=== PATIENT | male | born 1975 | race Caucasian/White ===

== ENCOUNTER 2020-05-02 13:25 | Outpatient (REF) | payer OTHER, SELFPAY ==
[2020-05-02 21:30] LABS: Abs Immature Grans 0.02 10^3/uL (0.0-0.06); Absolute Basophil Count 0.01 10^3/uL (0.0-0.2); Absolute Eosinophil Count 0.35 10^3/uL (0.0-0.7); Absolute Lymphocyte Count 2.14 10^3/uL (1.2-3.4); Absolute Monocyte Count 0.49 10^3/uL (0.1-0.8); Absolute Neutrophil Count 3.88 10^3/uL (1.2-6.7); Basophils % 0.1; Eosinophils % 5.1; HCT 44.8 % (40.0-50.0); HGB 15.1 g/dL (13.5-17.5); Immature Grans % 0.3; Lymphocytes % 31.1; MCH 30.8 pg (27.0-33.0); MCHC 33.7 % (32.0-36.0); MCV 91.4 fL (80-95); MPV 10.2 fL (8.0-11.0); Monocytes % 7.1; Neutrophils % 56.3; Nucleated RBC 0 %; Platelet Count 315 10^3/uL (130-400); RDW 12.9 % (11.8-14.1); RDW-SD 43.4 fL; WBC 6.89 10^3/uL (4.4-10.8)
[2020-05-02 22:33] LABS: ALT 34 U/L (16-63); AST 20 U/L (15-37); Albumin 4.2 g/dL (3.4-5.0); Alkaline Phosphatase 52 U/L (46-116); Anion Gap 8.3 mmol/L (3-11); BUN 16 mg/dL (7-18); Bilirubin, Total 0.5 mg/dL (0.2-1.0); CO2 28.7 mmol/L (21.0-32.0); CREATININE 1.23 mg/dL (0.70-1.30); Calcium 9.2 mg/dL (8.5-10.1); Calculated LDL 151 mg/dL (<100); Chloride 105 mmol/L (98-107); Cholesterol 233 mg/dL (<200); Glucose 103 mg/dL (74-106); HDL Cholesterol 64 mg/dL (40-60); Potassium 4.3 mmol/L (3.5-5.1); Sodium 142 mmol/L (136-145); TSH (W/Ref FT4) 2.41 uIU/mL (0.36-3.74); Total Protein 7.1 g/dL (6.4-8.2); Triglyceride 93 mg/dL (<150)
== END 2020-05-02 13:45 ==
LOC: NCHCN 13:25
PROVIDERS: Visit Provider Physician Assistant
DX: Z00.00 Encounter for general adult medical examination without abnormal findings (principal); F41.8 Other specified anxiety disorders; Z13.220 Encounter for screening for lipoid disorders; Z13.1 Encounter for screening for diabetes mellitus
CPT/HCPCS: 80053; 80061; 84443; 85025

== ENCOUNTER 2021-11-06 18:49 | Outpatient (REF) | payer OTHER, SELFPAY ==
[2021-11-06 19:16] LABS: Hemoglobin A1C 5.9 % (<5.7)
[2021-11-06 19:17] LABS: ALT 38 U/L (16-63); AST 24 U/L (15-37); Albumin 4.3 g/dL (3.4-5.0); Alkaline Phosphatase 60 U/L (46-116); Anion Gap 9.4 mmol/L (3-11); BUN 18 mg/dL (7-18); Bilirubin, Total 0.3 mg/dL (0.2-1.0); CO2 25.6 mmol/L (21.0-32.0); CREATININE 1.3 mg/dL (0.70-1.30); Calcium 9.2 mg/dL (8.5-10.1); Chloride 105 mmol/L (98-107); Estimated GFR 58.92 (mL/min/1.73m2); Glucose 156 mg/dL (74-106); Potassium 4.7 mmol/L (3.5-5.1); Sodium 140 mmol/L (136-145); Total Protein 7.3 g/dL (6.4-8.2)
== END 2021-11-06 18:50 | disposition home or self-care (01) ==
LOC: NCHCN 18:49
PROVIDERS: Visit Provider Physician Assistant
DX: Z00.00 Encounter for general adult medical examination without abnormal findings (principal); Z83.3 Family history of diabetes mellitus
CPT/HCPCS: 80053; 83036

== ENCOUNTER 2023-02-25 15:11 | Outpatient (REF) | payer OTHER, SELFPAY ==
--- NOTE | 2023-02-25 10:00 | SKI_PTH ---
PATIENT: David Pineda LOC: [facility] U#:[id number] AGE/SX: 47/M ROOM: RE02/25/[address]: Keely Jimenez : 1975 BED: DIS: 02/25/2023 SPEC #: [id number] RECD: 02/25/23 18:32 STATUS: SARA REDalton #: [id number] MINESH: 02/25/23 10:[address]: Keely Jimenez DEPT: Surgical Specimen RECD BY: Kinga Sanders Tissues: 1 - SKIN BIOPSY(SHAVE/PUNCH) Procedures: SKIN LEVEL 4 Comments: [id number]
[2023-02-25 20:29] LABS: ALT 30 U/L (16-63); AST 20 U/L (15-37); Albumin 4.2 g/dL (3.4-5.0); Alkaline Phosphatase 59 U/L (46-116); Anion Gap 8.2 mmol/L (3-11); BUN 16 mg/dL (7-18); Bilirubin, Total 0.3 mg/dL (0.2-1.0); CO2 28.8 mmol/L (21.0-32.0); CREATININE 1.5 mg/dL (0.70-1.30); Calcium 9.2 mg/dL (8.5-10.1); Calculated LDL 164 mg/dL (<100); Chloride 105 mmol/L (98-107); Cholesterol 237 mg/dL (<200); Estimated GFR 56.72 (mL/min/1.73m2); Glucose 115 mg/dL (74-106); HDL Cholesterol 56 mg/dL (40-60); Potassium 4.7 mmol/L (3.5-5.1); Sodium 142 mmol/L (136-145); Total Protein 7.6 g/dL (6.4-8.2); Triglyceride 86 mg/dL (<150)
== END 2023-02-25 15:12 | disposition home or self-care (01) ==
LOC: NCHCN 15:11
PROVIDERS: PCP Physician Assistant; Visit Provider Physician Assistant
DX: Z00.00 Encounter for general adult medical examination without abnormal findings (principal); E78.5 Hyperlipidemia, unspecified; L81.4 Other melanin hyperpigmentation; D23.61 Other benign neoplasm of skin of right upper limb, including shoulder
CPT/HCPCS: 80053; 80061; 88305

== ENCOUNTER 2023-05-17 12:11 | Emergency (ER) | payer OTHER, SELFPAY ==
[2023-05-17 12:29] VITALS: BP 159/86; PULSE 77; RESP 15; TEMP 36.7; O2SAT 96
--- NOTE | 2023-05-17 13:00 | DI.RAD_ITS ---
Exam(s) XR ANKLE RT COMPLETE EXAM: XR ANKLE RT COMPLETE CLINICAL HISTORY: Pain, swelling. TECHNIQUE: 2D digital imaging was performed. Three views. COMPARISON: No exams were available for comparison FINDINGS: BONES: No acute fracture is present. No bony destructive lesion is seen. Enthesophyte at Achilles in sertion calcaneus. Chronic appearing density adjacent to tip medial malleolus. JOINTS: The ankle mortise is normally aligned. SOFT TISSUE: Swelling IMPRESSION: No acute abnormality. DATA REPOSITORY: RADIATION DOSE DELIVERED:
--- NOTE | 2023-05-17 13:13 | W.ED.GENAD ---
Discharge Plan Disposition Patient Disposition: Home Condition: Stable Discharge Details Clinical Impression: Ankle pain, right Primary Care Provider: Keely Jimenez ED Provider: Sugey Barron Home Meds and New Rx's Prescriptions: New indomethacin 50 mg capsule 50 mg PO BID PRN (Reason: pain (scale score 4-6)) Qty: 14 0RF Rx Instructions: administer with food or milk No Action liothyronine 5 mcg Tablet 4.5 mcg PO DAILY bupropion HCl [Wellbutrin XL] 300 mg Tablet Extended Release 24 Hr 450 mg PO DAILY Discharge Instructions Instructions: Gout (ED) Additional Instructions: No evidence of acute abnormality to right ankle. Take the indomethacin as directed. Rest, Ice, Compression, elevation. Use crutches and wear splint as needed for comfort. Follow up with primary care provider in 3-5 days. Return to ED sooner if any worsening or concerns. Increase oral fluids. Stand Alone Forms: Work Release Referrals: Keely Jimenez [Primary Care Provider] - 3 days Discharge Data Discharge Date/Time-TO BE ENTERED AT DEPARTURE: 05/17/23 14:15 Medical Decision Making 47-year-old male presents to the ER with chief complaint of right ankle pain and swelling which started this morning. He reports he does have a history of gout which is normally in his toe he reports that this feels similar. He does have some swelling to the lateral malleolus. Denies any known injury. He did take naproxen prior to arrival and has been icing it and elevating it with some relief. He does endorse a high purine diet with red meat and wine. No other associated symptoms or concerns. X-ray ordered., Indomethacin 50 mg p.o. Patient given crutches, and a lace up ankle splint. Prescription for Indomethacin given. Instructed to follow up. This text was generated using [employer]comation system, please disregard any oddities of phrase or misspellings. Imaging Data Radiologic Study: Imaging: X-Ray Radiologist's impression: EXAM:? XR ANKLE RT COMPLETE CLINICAL HISTORY: ? Pain, swelling. ? TECHNIQUE:? 2D digital imaging was performed.? Three views. COMPARISON:? No exams were available for comparison FINDINGS: BONES: No acute fracture is present.? No bony destructive lesion is seen. Enthesophyte at Achilles insertion calcaneus.? Chronic appearing density adjacent to tip medial malleolus. JOINTS: The ankle mortise is normally aligned. SOFT TISSUE: Swelling IMPRESSION: No acute abnormality.? HPI General Mode of arrival: ambulatory. Date/Time Provider Initiated Documentation: 05/17/23 13:08. Limitations to Documentation: no limitations. Information obtained by: patient, RN notes reviewed and old records reviewed. HPI Narrative: 47-year-old male presents to the ER with chief complaint of right ankle pain and swelling which started this morning. He reports he does have a history of gout which is normally in his toe he reports that this feels similar. He does have some swelling to the lateral malleolus. Denies any known injury. He did take naproxen prior to arrival and has been icing it and elevating it with some relief. He does endorse a high purine diet with red meat and wine. No other associated symptoms or concerns. Related Data Home Medications Medication Instructions Recorded Confirmed bupropion HCl 300 mg 24 hr tablet, 450 mg PO DAILY 05/17/23 05/17/23 extended release (Wellbutrin XL) indomethacin 50 mg capsule 50 mg PO BID PRN pain (scale score 05/17/23 4-6) #14 caps liothyronine 5 mcg tablet 4.5 mcg PO DAILY 05/17/23 05/17/23 Previous Rx's Medication Instructions Recorded indomethacin 50 mg capsule 50 mg PO BID PRN pain (scale score 05/17/23 4-6) #14 caps Allergies Allergy/AdvReac Type Severity Reaction Status Date / Time No Known Allergies Allergy Unverified 05/17/23 12:33 General Stated Complaint: GenMedical RAMYA: 4 Review of Systems All systems reviewed & are unremarkable except as noted in HPI and below PFSH All Active Problems (Updated 05/17/23 @ 13:56 by Sugey Barron NP) Ankle pain, right (Acute) Social History Smoking/Tobacco Use Status: Never Smoking risk assessment performed?: Yes Alcohol Intake: current Alcohol Intake frequency: a few times a week Alcohol type: beer Drug use: Never Substance use type: does not use Housing: house Do you feel safe at home: Yes Do you feel safe in your relationship?: Yes Exam Extrem Right lower extremity: normal capillary refill and ankle Details: tenderness Location: of the lateral malleolus and swelling Details: laterally Course Vital Signs Vital signs: Vital Signs Temperature 36.7 C 05/17/23 12:29 Pulse 77 05/17/23 12:29 Respiratory Rate 15 05/17/23 12:29 Blood Pressure 159/86 H 05/17/23 12:29 Pulse Oximetry 96 05/17/23 12:29 Temperature 36.7 C 05/17/23 12:29 Temperature Source Temporal Artery Scan 05/17/23 12:29 Pulse 77 05/17/23 12:29 Respiratory Rate 15 05/17/23 12:29 Respiratory Effort Normal 05/17/23 12:58 Respiratory Depth Normal 05/17/23 12:58 Respiratory Pattern Normal 05/17/23 12:58 Blood Pressure 159/86 H 05/17/23 12:29 Blood Pressure Position Sitting 05/17/23 12:29 Pulse Oximetry 96 05/17/23 12:29 Oxygen Delivery Method Room Air 05/17/23 12:29 Oxygen Flow Rate 0 05/17/23 12:29 PAWSS Have you Been Recently Intoxicated or Drunk Within the Last 30 days?: No Have you Ever Experienced Previous Episodes of Alcohol Withdrawal?: No Have you ever Experienced Withdrawal Seizures?: No Have you ever Experienced Delirium Tremens(DT)s?: No Have you ever undergone Alcohol Rehabilitation Treatment (i.e, inpt ot outpatient treatment programs)?: No Have you ever Experienced Blackouts?: No Have you ever Combined Alcohol with other Downers within the last 90 days?: No Have you ever Combined Alcohol with any other Substance of Abuse during the last 90 days?: No Result: 0
[2023-05-17] MEDS: Indomethacin 25 MG CAP 50 MG PO (13:25)
== END 2023-05-17 14:15 | disposition home or self-care (01) ==
PROVIDERS: Emergency Provider Registered Nurse Emergency; PCP Physician Assistant
DX: M25.571 Pain in right ankle and joints of right foot (principal); M1A.9XX0 Chronic gout, unspecified, without tophus (tophi)
CPT/HCPCS: 99283; 73610; 99282

== ENCOUNTER 2024-03-07 10:51 | Outpatient (REF) | payer OTHER, SELFPAY ==
[2024-03-07 20:25] LABS: ALT 34 U/L (16-63); AST 26 U/L (15-37); Albumin 4.2 g/dL (3.4-5.0); Alkaline Phosphatase 61 U/L (46-116); Anion Gap 8.8 mmol/L (3-11); BUN 12 mg/dL (7-18); Bilirubin, Total 0.42 mg/dL (0.2-1.0); CO2 27.2 mmol/L (21.0-32.0); CREATININE 1.3 mg/dL (0.70-1.30); Calcium 8.9 mg/dL (8.5-10.1); Chloride 105 mmol/L (98-107); Estimated GFR 66.93 (mL/min/1.73m2); Glucose 103 mg/dL (74-106); Potassium 4.5 mmol/L (3.5-5.1); Sodium 141 mmol/L (136-145); Total Protein 7.5 g/dL (6.4-8.2); Uric Acid 8.5 mg/dL (3.5-7.2)
[2024-03-08 20:34] LABS: PSA, Screening 0.8 ng/mL (<=3.5)
[2024-03-08 21:12] LABS: Hepatitis C Ab w Rflx HCV PCR Negative (Negative)
[2024-03-08 21:16] LABS: HIV-1/2 Ag & Ab Screen Negative (Negative)
== END 2024-03-07 10:52 | disposition home or self-care (01) ==
LOC: NCHCN 10:51
PROVIDERS: PCP Physician Assistant; Visit Provider Physician Assistant
DX: M10.9 Gout, unspecified (principal); Z11.4 Encounter for screening for human immunodeficiency virus [HIV]; Z11.59 Encounter for screening for other viral diseases; Z12.5 Encounter for screening for malignant neoplasm of prostate
CPT/HCPCS: 80053; 84153; 86803; 87389; 84550

== ENCOUNTER 2024-04-30 19:58 | Outpatient (REF) | payer OTHER, SELFPAY ==
--- OUTSIDE RECORDS SUMMARY | 2024-04-30 19:59 | XMS_ITS | Continuity of Care Document ---
Author Organization [place] - [facility] Address [address] [place] [address] Care Team Providers Care Office Employee Name Role Phone MAIN CHAIDEZ Primary Care Provider [phone] MERRITT LEVY Dentist Assessment No assessment recorded. Plan of Treatment Reminders Order Date Submit Date Provider Last Modified By Organization Details Last Modified Time Details Appointments Nurse Visit 20 2023 02:00P M Not available Not available Not available Immunizat ion 20 2023 08:00A M Not available Not available Not available Annual Wellness Exam 40 2024 08:00A M Not available Not available Not available Lab BMP, serum or plasma 2023 024 [email or web address] [facility] (Registration ), [address] [place] [address] [place], [address], 04/30/2024 15:28:17 uric acid, serum or plasma 2023 024 [email or web address] [facility] (Registration ), [address] [place] [address] [place], [address], 04/30/2024 15:28:17 Referral None recorded. Procedures None recorded. Surgeries None recorded. Imaging None recorded. Medication Orders None recorded. Patient TargetsNo targets recorded. Patient InstructionsNo instructions recorded. Reason for Referral None Reported. Results Created Date Observation Date Name Description Value Unit Range Abnormal Flag Note LastModifiedBy Organization Detail LastModifiedTime 04/30/20 24 05/17/2023 imagi ng/di agnos tic resul t No observ ation record ed. [email or web address] Not Available 04/30 04:27:08 Result Notes None recorded. Problems Name Problem SNOMED Code Status Onset Date Resolution Date Notes Provider Name and Address Organization Details Recorded Time Elevated blood-pr essure reading without diagnosi s of hyperten ada 278190993 Active 201606/19/20 18 - Comments only - LIBAN LisaC - Blood pressure well controll ed. No changes. [facility] ed lifestyl e modifica tions. Problem Code: R03.0; Problem Code Type: ICD-10; Not Available [facility] 3 04:02:15 Sleep apnea 84181108 Active 201611/07/19 22 - Comments only - Main GOLDMAN - - discusse d risks of untreate d sleep apnea. [facility] ed pt to reconsid er treatmen t and advised to let us know if he would like a referral back to the sleep clinic. he declines this for now. Problem Code: G47.30; Problem Code Type: ICD-10; Not Available [facility] 3 04:02:15 Gout 27905409 Active 2016 Problem Code: M10.9; Problem Code Type: ICD-10; Not Available [facility] 3 04:02:15 Anxiety 04117543 Active 201602/26/20 23 - Comments only - Main GOLDMAN - mood stable. cont current medicati ons. denies SI or HI Problem Code: F41.8; Problem Code Type: ICD-10; Not Available [facility] 3 04:02:15 Adult health examinat ion Active 201602/26/20 23 - Comments only - Main GOLDMAN - - referral to [facility] for colonosc opy - UTD on imms- bivalent booster due in the fall - fasting BW drawn today - Discusse d lifestyl e modifica tions such as diet and exercise (aerobic exercise 30 minutes 4-5 days per week) Problem Code: Z00.00; Problem Code Type: ICD-10; Not Available [facility] 3 04:02:15 Hyperlip idemia 65150433 Active 201910/18/19 21 - Comments only - Main GOLDMAN - - pt declines blood work this time - discusse d lifestyl e modifica tions Problem Code: E78.5; Problem Code Type: ICD-10; Not Available [facility] 3 04:02:15 Family history of diabetes mellitus 787882826 Active 202111/07/19 22 - Comments only - Main GOLDMAN - - checking a1c Problem Code: Z83.3; Problem Code Type: ICD-10; Not Available [facility] 3 04:02:15 Migraine 16949591 Active 202111/07/19 22 - Comments only - Main GOLDMAN - - rx for imitrex 50mg 1 tablet at onset can repeat in 2 hours if needed - discusse d migraine preventi on lifestyl e choices (ie sleep, water, food and exercise ) Problem Code: G43.909; Problem Code Type: ICD-10; Not Available [facility] 3 04:02:15 COVID-19 593706183 Active 2021 Problem Code: U07.1; Problem Code Type: ICD-10; Not Available [facility] 3 04:02:15 Neoplasm of uncertai n behavior of skin 94286511 Active 202202/26/20 23 - Comments only - Main GOLDMAN - PROCEDUR E: Shave Biopsy Location : R posterio r shoulder The risks, benefits , options and complica tions of shave biopsy have been discusse d with pt. The risks include the chance of infectio n and scarring . Pt gives verbal consent. Denies allergie s to lidocain eand iodine. The site was prepped with Iodine and the skin locally anesthet ized with 0.25 cc of 1% Lidocain e. Superfic ial layers removed by shave biopsy with dermabla de Hemostas is obtained with pressure and silver nitrate. No complica tions were encounte red. The wound was dressed with antibiot ic ointment and a band-aid . Wound care discusse d. Specimen sent for patholog y. Keep wound dry and covered for 24-48 hr Problem Code: D48.5; Problem Code Type: ICD-10; Not Available [facility] 3 04:02:16 Screenin g for malignan t neoplasm of colon Completed 202202/26/2023 Problem Code: Z12.11; Problem Code Type: ICD-10; Not Available [facility] 3 04:02:16 Allergic rhinitis 73266020 Completed 201606/19/2018 Problem Code: J30.9; Problem Code Type: ICD-10; Not Available [facility] 3 04:02:16 Diabetes mellitus screenin g Completed 201910/17/2020 Problem Code: Z13.1; Problem Code Type: ICD-10; Not Available [facility] 3 04:02:16 Anxiety disorder 168635962 Completed 201611/24/2016 Problem Code: F41.9; Problem Code Type: ICD-10; Not Available [facility] 3 04:02:17 Hyperlip idemia screenin g Completed 201910/17/2020 Problem Code: Z13.220; Problem Code Type: ICD-10; Not Available [facility] 3 04:02:20 Major depressi on, single episode 90384834 Completed 201611/24/2016 Problem Code: F32.9; Problem Code Type: ICD-10; Not Available [facility] 3 04:02:22 Prediabe jax 189046728 Active 2023 MAIN CHAIDEZ PA-C [address], [place], [address] , [facility] 4 08:34:56 Skin lesion 81546963 Active 2023 L lower back 1cmx0.2c m oval brown macule MAIN CHAIDEZ PA-C [address], [place], [address] , [facility] 4 09:01:18 Problem Notes None recorded. Medical Equipment None Reported. Allergies No known drug allergies Medications Name Sig Start Date Stop Date Status Note LastModified by Organization Details LastModified Time Prescript ion - Renewal active Sumatrip perez refill Not Available Not Available Not Available bupropion HCl SR 150 mg tablet,12 hr sustained -release Take 1 tab by mouth daily 11/24 completed Not Available Not Available Not Available cetirizin e 10 mg tablet Take 1 tab by mouth daily. 11/24 completed Not Available Not Available Not Available allopurin ol 100 mg tablet Take 1 tablet every day by oral route. active Not Available Not Available No t Available liothyron ine 5 mcg tablet TAKE ONE AND ONE-HALF TABLETS ONCE DAILY 2023 active Not Available Not Available Not Avai lable Imitrex 50 mg tablet Take 1 tablet by mouth as directed AT ONSET OF MIGRAINE . MAY REPEAT IN 2 HOURS ONCE 2021 active Not Available Not Available Not Avai lable bupropion HCl 100 mg tablet Take 1and a half tabs by mouth daily 2016 active Not Available Not Available Not Avai lable indometha dany 50 mg capsule TAKE ONE CAPSULE BY MOUTH TWICE A DAY NEEDED FOR PAIN ( SCALE SCORE 4-6) ADMINIST ER WITH FOOD OR MILK active Not Available Not Available No t Available fluticaso ne propionat e 50 mcg/actua tion nasal spray,delio pension 1 spray each nostril daily 11/24 completed Not Available Not Available Not Available bupropion HCl XL 300 mg 24 hr tablet, extended release TAKE 1 TABLET DAILY 2023 active Not Available Not Available Not Avai lable bupropion HCl XL 150 mg 24 hr tablet, extended release TAKE 1 TABLET DAILY. active Not Available Not Available No t Available multivita min 1 tab a day 2016 active Not Available Not Available Not Avai lable Tart Yen 30 mg-250 mg-75 mg-75 mg capsule 10/17 completed Not Available Not Available Not Available Paxlovid 300 mg (150 mg x 2)-100 mg tablets in a dose pack Take 3 tablet by mouth twice a day as directed Take 3 tablets twice a day for 5 days. 02/25 completed Not Available Not Available Not Available Vitals None Recorded Social History Question Answer Notes LastModified by Organizat ion Details LastModified Time Tobacco Smoking Status Never Smoker ALEXY ALAMO LPN null, [place] - [facility] 03/07/2024 08:22:18 Would You Say That, In General, Your Health Is Good Information not available 03/07/2024 How Often Does Anyone, Including Family, Physically Hurt You? Never Information not available 03/07/2024 How Often Does Anyone, Including Family, Insult Or Talk Down To You? Never Information no t available 03/07/2024 How Often Does Anyone, Including Family, Threaten You With Harm? Never Information not available 03/07/2024 How Often Does Anyone, Including Family, Scream Or Curse At You? Never Information not available 03/07/2024 Within The Past 12 Months, You Worried That Your Food Would Run Out Before You Got Money To Buy More. Never True Information n ot available 03/07/2024 Within The Past 12 Months, The Food You Bought Just Didn't Last And You Didn't Have Money To Get More. Never True Information not available 03/07/2024 How Hard Is It For You To Pay For The Very Basics Like Food, Housing, Medical Care, And Heating? Would You Say It Is: Not Hard At All Information not available 03/07/2024 In The Past 12 Months, Has Lack Of Reliable Transportation Kept You From Medical Appointments, Meetings, Work Or From Getting Things Needed For Daily Living? No Information not available 03/07/2024 What Is Your Housing Situation Today? I Have Housing. Information not available 03/07/2024 How Often In The Past Year Have You Used Marijuana (including Smoking, Vaping, Dabbing, Or Edibles)? Never Information not available 03/07/2024 How Often In The Past Year Have You Used Prescription Medications That Were Not Prescribed To You? Never Information not available 03/07/2024 How Often In The Past Year Have You Taken Your Own Prescription Medication More Than The Way It Was Prescribed Or For Different Reasons Than Its Intended Purpose? Never Information not available 03/07/2024 How Often In The Past Year Have You Used Other Drugs (for Example, Heroin, Cocaine, Meth, Salvia, Inhalants)? Never Information not available 03/07/2024 Have You Ever Used IV Drugs? No Information not available 03/07/2024 Date Of Most Recent SBINS 03/07/2024 Information not available 03/07/2024 What Was The Date Of Your Most Recent Tobacco Screening? 03/07/2024 Information n ot available 03/07/2024 Has Tobacco Cessation Counseling Been Provided? No Information not available 03/07/2024 Do You Or Have You Ever Used Any Other Forms Of Tobacco Or Nicotine? No Information not available 03/07/2024 Sex: Male Functional Status None recorded. Mental Status None recorded. Family History Relationship Description Onset Age of this Age Resolved Age Notes LastModified by Organization Details LastModified Time Father Family history of alcoholism [email or web address] Not available 06/24 03:54:47 Daughter Family history of malignant melanoma dxd age 17, BCC and dyspla stic nevus [email or web address] Not available 03/07/2024 08:42:19 Mother Crohn's disease [email or web address] Not available 2023 08:41:23 Mother Ulcerative colitis [email or web address] Not available 2023 08:41:42 Father Type 2 diabetes mellitus [email or web address] Not available 2023 08:41:59 Notes:Father , age 5 7, diabetes, substance abuse issues. Mother living, age 70, has ulcerative colitis. no fhx of prostate cancer Medical History No medical history recorded. Immunizations Vaccine Type Date Status Provider Name and Address Organization Details Recorded Time zoster recombinant 03/07/[address], [place], [address], [facility]. 03/07/2024 09:35:16 Tdap 11/24/2016 completed Not Available [facility] 06:32:36 Influenza, split virus, quadrivalent, preservative 05/26/2017 completed Not Available [facility] 06/24/2023 06:32:37 Influenza, split virus, quadrivalent, preservative 06/16/2018 completed Not Available [facility] 06/24/2023 06:32:37 COVID-19, mRNA, LNP-S, PF, 100 mcg/0.5mL dose or 50 mcg/0.25mL dose 10/10/2020 completed Not Available [facility] 06/24/20 06:32:37 COVID-19, mRNA, LNP-S, PF, 100 mcg/0.5mL dose or 50 mcg/0.25mL dose 11/06/2020 completed Not Available [facility] 06/24/20 06:32:37 COVID-19, mRNA, LNP-S, PF, 100 mcg/0.5mL dose or 50 mcg/0.25mL dose 07/17/2021 completed Not Available [facility] 06/24/20 06:32:37 COVID-19, mRNA, LNP-S, bivalent, PF, 50 mcg/0.5 mL or 25mcg/0.25 mL dose 06/01/2022 completed Not Available [facility] 06/24/2023 06:32:37 influenza, unspecified formulation 05/29/2018 completed Not Available [facility] 06/24/2023 06:32:37 influenza, unspecified formulation 05/29/2020 completed Not Available [facility] 06/24/2023 06:32:37 Past Encounters Encounter ID Performer Location Encounter Start Date Encounter Closed Date Diagnosis/Indication Diagnosis SNOMED-CT Code Diagnosis ICD10 Code [id number] [address] [address] 04/30/2024 13:54:56 04/30/2024 14:22:29 [facility] [id number] M10.9 Health Concerns Section Related Observation LastModified by Organization Detai ls LastModified Time None Recorded Concern Status LastModified by Organization Details LastModified Time None Recorded Payers Encounter Date Sequence Insurance Name Policy Number Policy Daniels Covered Member ID Daniels Member ID Guarantor Name 04/30/2024 1 [facility] [id number] David Pineda [id number] David Pineda
--- OUTSIDE RECORDS SUMMARY | 2024-04-30 19:59 | XMS_ITS | Continuity of Care Document ---
Author Organization [place] [facility] Address [address] [place] [address] Care Team Providers Care Certified Residential Medication Aide Name Role Phone KEELY CHAIDEZ Primary Care Provider MERRITT LEVY Dentist Assessment No assessment recorded. [...] Not available Not available Not available Lab CMP, serum or plasma 2023 024 CHRISTEN [facility] (Registration ), [address] [place] [address] [place], [address], 03/07/2024 20:27:37 uric acid, serum or plasma 2023 024 [email or web address] [facility] (Registration ), [address] [place] [address] [place], [address], 03/08/2024 08:19:01 hemoglobi n A1C, fingersti ck 2023 024 [email or web address] [facility], [address] [place] [address], [address], 03/07/2024 08:38:27 PSA, serum or plasma 2023 024 [email or web address] [facility] (Registration ), [address] [place] [address] Dr, [place], [address], 03/09/2024 10:08:55 hepatitis C virus Ab, serum 2023 024 [email or web address] (Registration ), [address] [place] [address] [place], [address], 03/09/2024 10:08:34 HIV (1+2) Ab screen, serum 2023 024 [email or web address] (Registration ), [address] [place] [address] [place], [address], 03/09/2024 10:08:45 Referral None recorded. Procedures colonosco py procedure (PROC) 2023 [facility], [address] [place] [address] [place], [address], 03/07/2024 09:44:48 Surgeries None recorded. Imaging None recorded. Medication Orders liothyron ine [address] [facility], [address] [place] [address], [address], 03/07/2024 09:34:17 bupropion HCl XL 150 mg 24 hr tablet, extended release [address] [facility], [address] [place] [address], [address], 03/07/2024 09:34:15 bupropion HCl XL 300 mg 24 hr tablet, extended release [address] [facility], [address] [place] [address], [address], 03/07/2024 09:34:15 Patient TargetsNo targets recorded. Patient Instructions Encounter Date Encounter Id Patient Instructions Last Modified By Organization Details Last Modified Time 03/07/2024 [id number] diet [email or web address] Not available 03/07 09:35:32 exercise [email or web address] Not available 2023 09:35:32 You had blood work done today. Please allow up to 2 weeks to hear about results. Decrease carbohydrate intake (breads, pasta, rice, potatoes, corn, peas, carrots, milk, sweets and sugary drinks) as well as increase aerobic exercise (ie walking 4-5 times per week for 20-30 minutes) schedule nurse visit in 3 months for second shingles vaccine A referral has been placed for {{Allergy Audiolo gy Bariatric Card iology Colonoscop y* Powertrain Design Engineer Endo crinology ENT Gas troenterology Gen eral Surgery Genetics Hematology/Oncolo gy Nephrology Destiny rology HOSPITAL EDUCATION COORDINATOR Opt ometry/Ophthalmol ogy Orthopedics [facility] Physical Therapy Podiatry Psychiatry Pulmon ology Rheumatolog y Sleep Clinic Spine Clinic Urology Va scular Surgery}} at {{[facility] ([facility]) [facility] ([facility] ([facility]) [facility] ([facility]) [facility] ([facility]) [facility]}}. If you do not receive a call to schedule an appointment in 7-10 days, please contact our host coordinator at watch that skin lesion on left lower back let me know if increasing in size or becoming discolored (darker brown, black, blue etc) or bleeding/scabbing Call with any questions or concerns [email or web address] Not available 03/07/2024 08:51:45 Reason for Referral None Reported. Results Created Date Observation Date Name Description Value Unit Range Abnormal Flag Note LastModifiedBy Organization Detail LastModifiedTime 03/07/2003/07/2024 hemog lobin A1C, finge rstic k hemoglobin A1C 5.9 % <5.7 Not Available [facility] [address] [facility] [address], [place], [address], 03/06/2024 11:10:22 04/30/20 24 05/17/2023 imagi ng/di agnos tic resul t No observ ation record ed. [email or web address] Not Available 04/30 04:27:08 Result Notes None recorded. Problems Name Problem SNOMED Code Status Onset Date Resolution Date Notes Provider Name and Address Organization Details Recorded Time Elevated blood-pr essure reading without diagnosi s of hyperten ada 640920504 Active 201606/19/20 18 - Comments only - LIBAN LisaC - Blood pressure well controll ed. No changes. [facility] ed lifestyl e modifica tions. Problem Code: R03.0; Problem Code Type: ICD-10; Not Available [facility] 3 04:02:15 Sleep apnea 24558039 Active 201611/07/19 22 - Comments only - Keely GOLDMAN - - discusse d risks of untreate d sleep apnea. [facility] ed pt to reconsid er treatmen t and advised to let us know if he would like a referral back to the sleep clinic. he declines this for now. Problem Code: G47.30; Problem Code Type: ICD-10; Not Available [facility] 3 04:02:15 Gout 47554992 Active 2016 Problem Code: M10.9; Problem Code Type: ICD-10; Not Available [facility] 3 04:02:15 Anxiety 07496496 Active 201602/26/20 23 - Comments only - Keely GOLDMAN - mood stable. cont current medicati ons. denies SI or HI Problem Code: F41.8; Problem Code Type: ICD-10; Not Available [facility] 3 04:02:15 Adult health examinat ion Active 201602/26/20 23 - Comments only - Keely GOLDMAN - - referral to [facility] general surgery for colonosc opy - UTD on imms- bivalent booster due in the fall - fasting BW drawn today - Discusse d lifestyl e modifica tions such as diet and exercise (aerobic exercise 30 minutes 4-5 days per week) Problem Code: Z00.00; Problem Code Type: ICD-10; Not Available [facility] 3 04:02:15 Hyperlip idemia 60249764 Active 201910/18/19 21 - Comments only - Keely GOLDMAN - - pt declines blood work this time - discusse d lifestyl e modifica tions Problem Code: E78.5; Problem Code Type: ICD-10; Not Available [facility] 3 04:02:15 Family history of diabetes mellitus 589495636 Active 202111/07/19 22 - Comments only - Keely GOLDMAN - - checking a1c Problem Code: Z83.3; Problem Code Type: ICD-10; Not Available [facility] 3 04:02:15 Migraine 07807671 Active 202111/07/19 22 - Comments only - Keely GOLDMAN - - rx for imitrex 50mg 1 tablet at onset can repeat in 2 hours if needed - discusse d migraine preventi on lifestyl e choices (ie sleep, water, food and exercise ) Problem Code: G43.909; Problem Code Type: ICD-10; Not Available [facility] 3 04:02:15 COVID-19 346813801 Active 2021 Problem Code: U07.1; Problem Code Type: ICD-10; Not Available [facility] 3 04:02:15 Neoplasm of uncertai n behavior of skin 12906101 Active 202202/26/20 23 - Comments only - Keely GOLDMAN - PROCEDUR E: Shave Biopsy Location [...] D48.5; Problem Code Type: ICD-10; Not Available [facility] 3 04:02:16 Screenin g for malignan t neoplasm of colon Completed 202202/26/2023 Problem Code: Z12.11; Problem Code Type: ICD-10; Not Available [facility] 3 04:02:16 Allergic rhinitis 38974076 Completed 201606/19/2018 Problem Code: J30.9; Problem Code Type: ICD-10; Not Available [facility] 3 04:02:16 Diabetes mellitus screenin g Completed 201910/17/2020 Problem Code: Z13.1; Problem Code Type: ICD-10; Not Available [facility] 3 04:02:16 Anxiety disorder 426217270 Completed 201611/24/2016 Problem Code: F41.9; Problem Code Type: ICD-10; Not Available [facility] 3 04:02:17 Hyperlip idemia screenin g Completed 201910/17/2020 Problem Code: Z13.220; Problem Code Type: ICD-10; Not Available [facility] 3 04:02:20 Major depressi on, single episode 52299026 Completed 201611/24/2016 Problem Code: F32.9; Problem Code Type: ICD-10; Not Available [facility] 3 04:02:22 Prediabe jax 023430378 Active 2023 KEELY CHAIDEZ PA-C [address], [place], [address] , [facility] 4 08:34:56 Skin lesion 56035004 Active 2023 L lower back 1cmx0.2c m oval brown macule KEELY CHAIDEZ PA-C [address], [place], [address] , [facility] 4 09:01:18 Problem Notes None recorded. Medical [...] Not Available Not Available Not Available Vitals Date Recorded Body height Body mass index (BMI) Body weight Body temperature Respiratory rate Oxygen saturation Oxygen saturation in Arterial blood by Pulse oximetry Heart rate Systolic blood pressure Diastolic blood pressure Provider Name and Address Organization Details Last Updated DateTime 175.26 cm 38.2 kg/m2 905528. 93 g 97.4 [degF] 18 /min 96 % 96 % 66 /min 122 mm[Hg] 80 mm[Hg] ALEXY ALVAREZULTON SURJIT [facility] 08:20:57 Social History Question Answer Notes LastModified by Organizat ion Details LastModified Time Tobacco Smoking Status Never Smoker ALEXY SURJIT ALAMO null, [facility] 03/07/2024 08:22:18 Would You Say That, In [...] Age of this Age Resolved Age Notes Father Family history of alcoholism Daughter Family history of malignant melanoma dxd age 17, B CC and dysplastic nevus Mother Crohn's disease Mother Ulcerative colitis Father Type 2 diabetes mellitus Notes:Father , age 5 7, diabetes, substance abuse issues. Mother living, age 70, has ulcerative colitis. no fhx of prostate cancer Medical History No medical history recorded. Immunizations Vaccine Type Date Status Provider Name and Address Organization Details Recorded Time zoster recombinant 03/07/[address] [place], [address], [facility] 03/07/2024 09:35:16 Tdap 11/24/2016 completed Not Available [facility] 06:32:36 Influenza, split virus, quadrivalent, preservative 05/26/2017 completed Not Available [facility] 06/24/2023 06:32:37 Influenza, split virus, quadrivalent, preservative 06/16/2018 completed Not Available [facility] 06/24/2023 06:32:37 COVID-19, mRNA, LNP-S, PF, 100 mcg/0.5mL dose or 50 mcg/0.25mL dose 10/10/2020 completed Not Available [facility] 06/24/20 06:32:37 COVID-19, mRNA, LNP-S, PF, 100 mcg/0.5mL dose or 50 mcg/0.25mL dose 11/06/2020 completed Not Available [facility] 06/24/20 06:32:37 COVID-19, mRNA, LNP-S, PF, 100 mcg/0.5mL dose or 50 mcg/0.25mL dose 07/17/2021 completed Not Available [facility] 06/24/20 06:32:37 COVID-19, mRNA, LNP-S, bivalent, PF, 50 mcg/0.5 mL or 25mcg/0.25 mL dose 06/01/2022 completed Not Available [facility] 06/24/2023 06:32:37 influenza, unspecified formulation 05/29/2018 completed Not Available [facility] 06/24/2023 06:32:37 influenza, unspecified formulation 05/29/2020 completed Not Available [facility] 06/24/2023 06:32:37 Past Encounters Encounter ID Performer Location Encounter Start Date Encounter Closed Date Diagnosis/Indication Diagnosis SNOMED-CT Code Diagnosis ICD10 Code [id number] KEELY CHAIDEZ PA-C [address] [address] 03/07/2024 08:07:23 03/07/2024 09:09:35 Active or passive immunization 930714959 Z23 Adult heal th examination 169123648 Z00.00 Hepatitis C screening 41 9422461 Z11.59 HIV screening 003407494 Z11.4 Prediabetes 301326292 R7 3.03 Gout 20141755 M10.9 Screening for malignant neoplasm of prostate 999403850 Z12.5 Hyperlipidemia 33784429 E78.5 Skin lesion 18487026 L98 .9 Screening for malignant neoplasm of colon 355230604 Z12.11 Anxiety 84042901 F41.9 Obesity 026149802 E66.9 Health Concerns Section Related Observation LastModified by Organization Detai ls LastModified Time None Recorded Concern Status LastModified by Organization Details LastModified Time None Recorded Payers Encounter Date Sequence Insurance Name Policy Number Policy Daniels Covered Member ID Daniels Member ID Guarantor Name 03/07/2024 1 [facility] [id number] David Pineda [id number] Dvaid Pineda Notes Date Note Type Note Provider Name and Address Organization Details Recorded Time 03/07/2024 text/html HPI Notes: Ingrid weston presents for annual exam and discussion of preventive care, as well as concerns about moles on his back. Annual exam: Patient is a 48-year-old male here for his annual exam. Colonoscopy referral: Patient mentioned that a referral was made last year for a colonoscopy, but due to scheduling issues, the procedure was not done. Prediabetes: Patient's most recent A1c was 5.9, indicating prediabetes. He is advised to watch his carbohydrate intake and decrease consumption of bread, pasta, rice, sweets and sugary drinks. Gout: Patient experiences gout flare-ups approximately once every four to six months. He takes indomethacin as needed for these flare-ups. Immunizations: Patient is due for shingles vaccine. pt unsure if he had covid booster this past year. Tetanus vaccine is up to date. Mole examination: Patient's requested examination of moles on his back. there was one lesion on lower back that is elongated. he is unsure if it has changed. no fhx of skin cancer except for his daughter which his has fhx of skin cancer. he is not always the best about sunscreen. Patient mentioned that his cholesterol was high in the past. He is advised to decrease consumption of animal products and increase intake of fruits and vegetables. Prostate cancer screening: Patient is interested in having a prostate cancer screening added to his blood work. no urinary symptoms. no fhx. Mood stable on current medications. denies SI or HI [address], [place], [address], [facility]. 03/07/2024 09:36:39
--- OUTSIDE RECORDS SUMMARY | 2024-04-30 19:59 | XMS_ITS | Encounter Summary ---
Author Organization [facility] Address [address] [place] [address] Care Team Providers Care Roller Presser Operator Name Role Phone Keely Jimenez Primary Care Provider + Encounter Details Date Type Department Care Team (Late st Contact Info) Description 03/08/2024 Lab Requisition [facility] Pathology & [facility] Medicine - [address] [address] Outr Resulting Lab, Provider Social History Tobacco Use Types Packs/Day Years Used Date Smoking Tobacco: Never Assessed Sex and Gender Information Value Date Recorded Sex Assigned at Not on file Gender Identity Not on file Sexual Orientation Not on file documented as of this encounter Plan of Treatment Not on file documented as of this encounter Procedures Procedure Name Priority Date/Time Associated Diagnosis Comments HIV 1/2 ANTIGEN AND ANTIBODY, 4TH GENERATION Routine 03/07/2024 9:00 EDT documented in this encounter Results * HIV 1/2 ANTIGEN AND ANTIBODY, 4TH GENERATION (03/07/2024 9:00 EDT) HIV 1 and 2 Antibody/p24 Antigen, 4th Generation Negative Negative 03/08/2024 21:12 EDT [facility] Comment:If acute HIV-1 infec tion is suspected in a high risk patient, submit plasma specimen for HIV-1 RNA quantitation test. Blood VENOUS BLOOD / Unknown 03/07/2024 9:00 EDT 03/08/2024 19:29 EDT Narrative [facility] - 03/08/2024 21:12 EDT Fourth Generation assay performed on the Siemens Centaur XPT. Provider Outr Resulting Lab IMMUNOLOGY A ND SEROLOGY ORDERABLES [facility] [address] [place] [address] documented in this encounter Visit Diagnoses Not on filedocumented in this encounter Care Teams Roller Presser Operator Relationship Specialty Start Date End Date Keely Jimenez PA [address] [place] [address] PCP - General 02/12/23 documented as of this encounter
--- OUTSIDE RECORDS SUMMARY | 2024-04-30 19:59 | XMS_ITS | Encounter Summary ---
Author Organization [facility] Address [address] [place] [address] Care Team Providers Care Manager Project Name Role Phone Keely Jimenez Primary Care Provider + Encounter Details Date Type Department Care Team (Late st Contact Info) Description 03/08/2024 Lab Requisition [facility] Pathology & Laboratory Medicine - [address] [address] Outr Resulting Lab, Provider Social [...] Procedure Name Priority Date/Time Associated Diagnosis Comments HOLD SST Today 03/07/2024 9:00 EDT HEPATITIS C AB W REFLEX TO HCV RNA BY PCR Today 03/07/2024 9:00 EDT PSA TOTAL, DIAGNOSTIC Today 03/07/2024 9:00 EDT documented in this encounter Results * HOLD SST (03/07/2024 9:00 EDT) Hold Hold 03/08/2024 20:31 EDT [facility] Blood VENOUS BLOOD / Unknown 03/07/2024 9:00 EDT 03/08/2024 19:28 EDT Provider Outr Resulting Lab LAB INFO SER VICE AND SUPPORT & PHONE RESULT [facility] [address] [place] [address] * PSA TOTAL, DIAGNOSTIC (03/07/2024 9:00 EDT) PSA 0.8 <=3.5 ng/mL 03/08/2024 20:30 EDT [facility] Blood VENOUS BLOOD / Unknown 03/07/2024 9:00 EDT 03/08/2024 19:28 EDT Narrative [facility] - 03/08/2024 20:30 EDT NOTE: Serum PSA concentration should not be interpreted as absolute evidence for the presence or absence of malignant disease. Assayed on Siemens Knimbusaur XPT using chemiluminescent technology.??Values obtained by using different assay methods cannot be used interchangeably. Provider Outr Resulting Lab CHEMISTRY & BLOOD GAS ORDERABLES Performing Organization Address City/[facility]/ZIP Co de Phone Number [facility] [address] [place] [id number] * HEPATITIS C AB W REFLEX TO HCV RNA BY PCR (03/07/2024 9:00 EDT) Hep C Antibody Negative Negative 03/08/2024 21:07 EDT [facility] Blood VENOUS BLOOD / Unknown 03/07/2024 9:00 EDT 03/08/2024 19:28 EDT Provider Outr Resulting Lab CHEMISTRY & BLOOD GAS ORDERABLES [facility] [address] [place] [address] documented in this encounter Visit Diagnoses Not on filedocumented in this encounter Care Teams Manager Project Relationship Specialty Start Date End Date Keely Jimenez PA [address] [place] [id number] PCP - General 02/12/23 documented as of this encounter
--- OUTSIDE RECORDS SUMMARY | 2024-04-30 19:59 | XMS_ITS | Encounter Summary ---
Author Organization [facility] Address [address] [place] [address] Care Team Providers Care Oyster Cultivator Name Role Phone Keely Jimenez Primary Care Provider + Encounter Details Date Type Department Care Team (Late st Contact Info) Description 02/26/2023 Lab Requisition [facility] Pathology & Laboratory Medicine - [facility] [address] [place] [address] Keely Jimenez PA [address] [place], [place] [phone] Neoplasm of uncertain behavior of skin Social History Tobacco Use Types Packs/Day Years Used Date Smoking Tobacco: Never Assessed Sex and Gender Information Value Date Recorded Sex Assigned at Not on file Gender Identity Not on file Sexual Orientation Not on file documented as of this encounter Plan of Treatment Not on file documented as of this encounter Procedures Procedure Name Priority Date/Time Associated Diagnosis Comments SURGICAL PATHOLOGY Today 02/25/2023 10 :00 EDT Neoplasm of uncertain behavior of skin documented in this encounter Results * SURGICAL PATHOLOGY (02/25/2023 10:00 EDT) Note to Patient The following pathology results have been interpreted by your pathologist and may be available to you before your health provider has had the opportunity to review them. Please allow time for your provider to receive these results and explore management options, if applicable. 02/28/2023 15:43 EDT [facility] Final Diagnosis A. SKIN OF SHOULDER, RIGHT POSTERIOR, SHAVE BIOPSY: - [place]. 02/28/2023 15:43 EDT [facility] Attestation By the signature below, the attending physician certifies that they have 1) personally conducted a gross and/or microscopic examination of the described specimen(s), and/or personally interpreted the results of laboratory testing of the described specimen(s), and 2) personally rendered or confirmed the above diagnosis. 02/28/2023 15:43 T [facility] at 1543 Microscopic Description The stratum corneum consists of a normal thin layer of basketweave orthokeratin. The epidermis is hyperplastic with elongate, thin, anastomosing rete ridges. Some of the rete are club shaped. The keratinocytes have abundant melanin pigment. The melanocytes are generally normal in number and distribution. 02/28/2023 15:43 EDT [facility] Clinical History Clinical diagnosis code: D48.5 02/28/2023 15:43 EDT [facility] Gross Description A. Received in formalin labelled with proper patient identification (initials B, B) and R posterior shoulder is a shave biopsy of perez-vazquez skin (0.7 x 0.4 by less than 0.1 cm). There is a central irregular brown macule that measures 0.2 x 0.1 cm. The margin is inked blue, the specimen is bisected and entirely submitted in A1. Darcie Angeles 02/28/2023 7:46 02/28/2023 15:43 EDT [facility] Performing Lab [facility] 02/28/2023 15:43 T [facility] Scanned Images 02/28/2023 15:43 T [facility] Tissue TISSUE SPECIMEN FROM SKIN / Unknown 02/25/2023 10:00 EDT 02/26/2023 9:20 EDT Keely GOLDMAN PATHOLOGY ORDERA BLES [facility] [address] [place] [address] documented in this encounter Visit Diagnoses Diagnosis Neoplasm of uncertain behavior of skin documented in this encounter Care Teams Oyster Cultivator Relationship Specialty Start Date End Date Keely Jimenez PA [address] [place] [address] PCP - General 02/12/23 documented as of this encounter
--- OUTSIDE RECORDS SUMMARY | 2024-04-30 19:59 | XMS_ITS | Referral Summary ---
Author Organization [facility] Address [address] [place] [address] Care Team Providers Care Hot Walker Name Role Phone Keely Jimenez Primary Care Provider + Encounters Date Type Department Care Team Description 03/08/2024 Lab Requisition [facility] Pathology & Laboratory [address] [address] Outr Resulting Lab, Provider 03/08/2024 Lab Requisition [facility] Pathology & Laboratory [address] [address] Outr Resulting Lab, Provider from Last 3 Months Social History Tobacco Use Types Packs/Day Years Used Date Smoking Tobacco: Never Assessed Sex and Gender Information Value Date Recorded Sex Assigned at Not on file Gender Identity Not on file Sexual Orientation Not on file Plan of Treatment Not on file Procedures Procedure Name Priority Date/Time Associated Diagnosis Comments HOLD SST Today 03/07/2024 9:00 EDT HIV 1/2 ANTIGEN AND ANTIBODY, 4TH GENERATION Routine 03/07/2024 9:00 EDT PSA TOTAL, DIAGNOSTIC Today 03/07/2024 9:00 EDT HEPATITIS C AB W REFLEX TO HCV RNA BY PCR Today 03/07/2024 9:00 EDT from Last 3 Months Results * HOLD SST (03/07/2024 9:00 EDT) Hold Hold 03/08/2024 20:31 EDT [facility] Blood VENOUS BLOOD / Unknown 03/07/2024 9:00 EDT 03/08/2024 19:28 EDT Provider Outr Resulting Lab LAB INFO SER VICE AND SUPPORT & PHONE RESULT Performing Organization Address City/[facility]/ZIP Co de Phone Number [facility] [address] [place] [address] * HEPATITIS C AB W REFLEX TO HCV RNA BY PCR (03/07/2024 9:00 EDT) Hep C Antibody Negative Negative 03/08/2024 21:07 EDT [facility] Blood VENOUS BLOOD / Unknown 03/07/2024 9:00 EDT 03/08/2024 19:28 EDT Provider Outr Resulting Lab CHEMISTRY & BLOOD GAS ORDERABLES Performing Organization Address [facility] Co de Phone Number [facility] [address] [place] [address] * HIV 1/2 ANTIGEN AND ANTIBODY, 4TH GENERATION (03/07/2024 9:00 EDT) Pathologist [facility] HIV 1 and 2 Antibody/p24 Antigen, 4th Generation Negative Negative 03/08/2024 21:12 EDT [facility] Comment:If acute HIV-1 infec tion is suspected in a high risk patient, submit plasma specimen for HIV-1 RNA quantitation test. Blood VENOUS BLOOD / Unknown 03/07/2024 9:00 EDT 03/08/2024 19:29 EDT Narrative [facility] - 03/08/2024 21:12 EDT Fourth Generation assay performed on the Siemens Centaur XPT. Provider Outr Resulting Lab IMMUNOLOGY A ND SEROLOGY ORDERABLES Performing Organization Address City/[facility]/ZIP Co de Phone Number [facility] [address] [place] [address] * PSA TOTAL, DIAGNOSTIC (03/07/2024 9:00 EDT) PSA 0.8 <=3.5 ng/mL 03/08/2024 20:30 EDT [facility] Blood VENOUS BLOOD / Unknown 03/07/2024 9:00 EDT 03/08/2024 19:28 EDT Narrative [facility] - 03/08/2024 20:30 EDT NOTE: Serum PSA concentration should not be interpreted as absolute evidence for the presence or absence of malignant disease. Assayed on Siemens ADVIA Centaur XPT using chemiluminescent technology.??Values obtained by using different assay methods cannot be used interchangeably. Provider Outr Resulting Lab CHEMISTRY & BLOOD GAS ORDERABLES [facility] [address] [place], [place] [address] from Last 3 Months Care Teams Hot Walker Relationship Specialty Start Date End Date Keely Jimenez PA [address] [place] [address] PCP - General 02/12/23
--- OUTSIDE RECORDS SUMMARY | 2024-04-30 19:59 | XMS_ITS | Data Portability ---
Author Organization [place] [facility] Address [address] [place] [address] Care Team Providers Care Lithographic Artist Name Role Phone KEELY CHAIDEZ Primary Care Provider [phone] MERRITT LEVY Dentist Assessment No assessment recorded. [...] CMP, serum or plasma 2023 024 CHRISTEN [facility] (Registration ), [address] [place] [address] [place], [address], 03/07/2024 20:27:37 uric acid, serum or plasma 2023 024 [email or web address] [facility] (Registration ), [address] [place] [address] [place], [address], 03/08/2024 08:19:01 hemoglobi n A1C, fingersti ck 2023 024 [email or web address] [facility], [address] [place] [address] [address], [place], [address], 03/07/2024 08:38:27 PSA, serum or plasma 2023 024 [email or web address] [facility] (Registration ), [address] [place] [address] [place], [address], 03/09/2024 10:08:55 hepatitis C virus Ab, serum [address] [facility] (Registration ), [address] [place] [address] [place], [address], 03/09/2024 10:08:34 HIV (1+2) Ab screen, serum [address] [facility] (Registration ), [address] [place] [address] [place], [address], 03/09/2024 10:08:45 BMP, serum or plasma [email or web address] [facility] (Registration ), [address] [place] [address] [place], [address], 04/30/2024 15:28:17 uric acid, serum or plasma [email or web address] [facility] (Registration ), [address] [place] [address] [place], [address], 04/30/2024 15:28:17 Referral None recorded. Procedures colonosco py procedure (PROC) 2023 024 [email or web address] [facility] General Surgery, [address] [place] [address] [place], [address], 03/07/2024 09:44:48 Surgeries None recorded. Imaging None recorded. Medication Orders liothyron ine 5 mcg tablet 2023 024 [facility], [facility], [place], [address], 03/07/2024 09:34:17 bupropion HCl XL 150 mg 24 hr tablet, extended release 2023 [facility], [address] [facility], [place], [address], 03/07/2024 09:34:15 bupropion HCl XL 300 mg 24 hr tablet, extended release 2023 [address] [facility], [address] [place] [address], [address], 03/07/2024 09:34:15 Patient TargetsNo targets recorded. Patient Instructions Encounter Date Encounter Id Patient Instructions Last Modified By Organization Details Last Modified Time 03/07/2024 [id number] diet [email or web address] Not available 03/07 09:35:32 exercise [...] Audiolo gy Bariatric Card iology Colonoscop y* Radius Grinder Endo crinology ENT Gas troenterology Gen eral Surgery Genetics Hematology/Oncolo gy Nephrology Destiny rology BILINGUAL TRAINER Opt ometry/Ophthalmol ogy Orthopedics [facility] Physical Therapy Podiatry Psychiatry Pulmon ology Rheumatolog y Sleep Clinic Spine Clinic Urology Va scular Surgery}} at {{[facility] ([facility]) [facility] ([facility])* [facility] ([facility]) ([facility]) [facility] ([facility]) [facility] ([facility]) [facility]}}. If you do not receive a call to schedule an appointment in 7-10 days, please contact our sales coordinator at watch that skin lesion on left lower back let me know if increasing in size or becoming discolored (darker brown, black, blue etc) or bleeding/scabbing Call with any questions or concerns [email or web address] Not available 03/07/2024 08:51:45 Reason for Referral None Reported. Results Created Date Observation Date Name Description Value Unit Range Abnormal Flag Note LastModifiedBy Organization Detail LastModifiedTime 03/07/20 24 03/07/2024 COMPR EHENS KATHERYN METAB OLIC PANEL calcium 8.9 mg/dL 8.5-10 .1 normal Not Available [address] [place], [address] 03/07/2024 20:27:37 03/07/20 24 03/07/2024 COMPR EHENS KATHERYN METAB OLIC PANEL glucose 103 mg/dL 74-106 normal Not Available Jasiel peña [address] [place], [address] 03/07/2024 20:27:37 03/07/20 24 03/07/2024 COMPR EHENS KATHERYN METAB OLIC PANEL BUN 12 mg/dL 7-18 normal Not Available Jasiel peña [address] [place], [address] 03/07/2024 20:27:37 03/07/20 24 03/07/2024 COMPR EHENS KATHERYN METAB OLIC PANEL creatinine 1.3 mg/dL 0.70-1 .30 normal Not Available [address] [place], [address] 03/07/2024 20:27:37 03/07/20 24 03/07/2024 COMPR EHENS KATHERYN METAB OLIC PANEL estimated GFR 66.93 mL/min /1.73m 2 The eGFR is calcu lated from a serum creat inine using the CKD-E PI 2020 equat ion. Other varia bles requi red for the equat ion are gende r and age; this equat ion does not inclu de a race coeff icien t. This equat ion has simil ar overa ll perfo rmanc e to previ ous equat ions excep t value s may diffe r, in parti cular , in patie nts with highe r value s of eGFR and young er-ag ed adult s. Not Available [address] [place], [address] 03/07/2024 20:27:37 03/07/20 24 03/07/2024 COMPR EHENS KATHERYN METAB OLIC PANEL total protein 7.5 g/dL 6.4-8. 2 normal Not Available [address] [place], [address] 03/07/2024 20:27:37 03/07/2003/07/2024 COMPR EHENS KATHERYN METAB OLIC PANEL albumin 4.2 g/dL 3.4-5. 0 normal Not Available [address] [place], [address] 03/07/2024 20:27:37 03/07/2003/07/2024 COMPR EHENS KATHERYN METAB OLIC PANEL bilirubin, total 0.42 mg/dL 0.2-1. 0 normal Not Available [address] [place], [address] 03/07/2024 20:27:37 03/07/2003/07/2024 COMPR EHENS KATHERYN METAB OLIC PANEL alk phos 61 U/L 46-116 normal Not Available [address] [place], [address] 03/07/2024 20:27:37 03/07/20 24 03/07/2024 COMPR EHENS KATHERYN METAB OLIC PANEL sodium 141 mmol/ L 136-14 5 normal Not Available [address] [place], [address] 03/07/2024 20:27:37 03/07/2003/07/2024 COMPR EHENS KATHERYN METAB OLIC PANEL potassium 4.5 mmol/ L 3.5-5. 1 normal Not Available [address] [place], [address] 03/07/2024 20:27:37 03/07/20 24 03/07/2024 COMPR EHENS KATHERYN METAB OLIC PANEL chloride 105 mmol/ L 98-107 normal Not Available [address] [place], [address] 03/07/2024 20:27:37 03/07/20 24 03/07/2024 COMPR EHENS KATHERYN METAB OLIC PANEL CO2 27.2 mmol/ L 21.0-3 2.0 normal Not Available [address] [place], [address] 03/07/2024 20:27:37 03/07/20 03/07/2024 COMPR EHENS KATHERYN METAB OLIC PANEL anion gap 8.8 mmol/ L 3-11 normal Not Available [address] [place], [address] 03/07/2024 20:27:37 03/07/20 24 03/07/2024 COMPR EHENS KATHERYN METAB OLIC PANEL AST 26 U/L 15-37 normal Not Available Jasiel peña [address] [place], [address] 03/07/2024 20:27:37 03/07/20 24 03/07/2024 COMPR EHENS KATHERYN METAB OLIC PANEL ALT 34 U/L 16-63 normal Not Available Jasiel peña [address] [place], [address] 03/07/2024 20:27:37 03/07/20 24 03/07/2024 URIC ACID uric acid 8.5 mg/dL 3.5-7. 2 high Not Available [address] [place], [address] 03/07/2024 20:27:37 03/07/20 24 03/08/2024 PSA, SCREE NICO PSA, screening 0.8 NG/mL <=3.5 NOTE: Serum PSA hamilton ntrat ion shoul d not be inter prete d as absol tribal evide nce for the prese nce or absen ce of amelie webster se. Assay ed on Sieme ns ADVIA Centa ur XPT using chemi lumin escen t techn ology . Value s obtai rey by using diffe rent assay metho ds canno t be used inter churchill eably . Test perfo rmed or refer red by [facility] nt Medic [facility] r [address] [place] [address] Not Available [address] [place], [address] 03/09/2024 08:12:28 03/07/20 24 03/08/2024 HEPAT ITIS C AB W RFLX HCV PCR hepatitis C Ab W rflx HCV PCR Negati ve negati ve Test perfo rmed or refer red by [facility] al Cent[facility] r [address], [place] [facility] [place] [address] Not Available [address] [place], [address] 03/09/2024 08:13:24 03/07/20 24 03/08/2024 PSA, SCREE NICO PSA, screening 0.8 NG/mL <=3.5 NOTE: Serum PSA hamilton ntrat ion shoul d not be inter prete d as absol tribal evide nce for the prese nce or absen ce of amelie webster se. Assay ed on Sieme ns ADVIA Centa ur XPT using chemi lumin escen t techn ology . Value s obtai rey by using diffe rent assay metho ds canno t be used inter churchill eably . Test perfo rmed or refer red by [facility] r [address], [place] [facility] [place] [address] Not Available [address] [place], [address] 03/09/2024 08:13:25 03/07/20 24 03/08/2024 HIV-1 /2 AG AB SCREE N HIV-1/2 Ag Ab screen Negati ve negati ve If acute HIV-1 infec tion is suspe cted in a high risk patie nt, submi t plasm a speci men for HIV-1 RNA quant itati on test. Fourt h Gener ation assay perfo rmed on the Sieme ns Centa ur XPT. Test perfo rmed or refer red by [facility] r [address], [place] [facility] [place] [address] Not Available [address] [place], [address] 03/09/2024 08:13:26 03/07/20 24 03/07/2024 hemog francisco Garzae rstic k hemoglobin A1C 5.9 % <5.7 Not Available [facility] [address], [place], [address], 03/06/2024 11:10:22 04/30/20 24 05/17/2023 imagi ng/di agnos tic resul t No observ ation record ed. [email or web address] Not Available 04/30 04:27:08 Result Notes None recorded. Problems Name Problem SNOMED Code Status Onset Date Resolution Date Notes Provider Name and Address Organization Details Recorded Time Elevated blood-pr essure reading without diagnosi s of hyperten ada 791582550 Active 201606/19/20 18 - Comments only - Abhishek Ny PA-C - Blood pressure well controll ed. No changes. [facility] ed lifestyl e modifica tions. Problem Code: R03.0; Problem Code Type: ICD-10; Not Available [facility] 3 04:02:15 Sleep apnea 98696762 Active 201611/07/19 22 - Comments only - Keely GOLDMAN - - discusse d risks of untreate d sleep apnea. [facility] ed pt to reconsid er treatmen t and advised to let us know if he would like a referral back to the sleep clinic. he declines this for now. Problem Code: G47.30; Problem Code Type: ICD-10; Not Available [facility] 3 04:02:15 Gout 65499622 Active 2016 Problem Code: M10.9; Problem Code Type: ICD-10; Not Available [facility] 3 04:02:15 Anxiety 59136318 Active 201602/26/20 23 - Comments only - Keely GOLDMAN - mood stable. cont current medicati ons. denies SI or HI Problem Code: F41.8; Problem Code Type: ICD-10; Not Available [facility] 3 04:02:15 Adult health examinat ion Active 201602/26/20 23 - Comments only - Keely GOLDMAN - - referral to [facility] general surgery for colonosc opy - UTD on imms- bivalent booster due in the fall - fasting BW drawn today - Discusse d lifestyl e modifica tions such as diet and exercise (aerobic exercise 30 minutes 4-5 days per week) Problem Code: Z00.00; Problem Code Type: ICD-10; Not Available [facility] 3 04:02:15 Hyperlip idemia 39845508 Active 201910/18/19 21 - Comments only - Keely GOLDMAN - - pt declines blood work this time - discusse d lifestyl e modifica tions Problem Code: E78.5; Problem Code Type: ICD-10; Not Available [facility] 3 04:02:15 Family history of diabetes mellitus 285472599 Active 202111/07/19 22 - Comments only - Keely GOLDMAN - - checking a1c Problem Code: Z83.3; Problem Code Type: ICD-10; Not Available [facility] 3 04:02:15 Migraine 46057687 Active 202111/07/19 22 - Comments only - Keely GOLDMAN - - rx for imitrex 50mg 1 tablet at onset can repeat in 2 hours if needed - discusse d migraine preventi on lifestyl e choices (ie sleep, water, food and exercise ) Problem Code: G43.909; Problem Code Type: ICD-10; Not Available [facility] 3 04:02:15 COVID-19 304098731 Active 2021 Problem Code: U07.1; Problem Code Type: ICD-10; Not Available [facility] 3 04:02:15 Neoplasm of uncertai n behavior of skin 45203760 Active 202202/26/20 23 - Comments only - [...] D48.5; Problem Code Type: ICD-10; Not Available [facility] 3 04:02:16 Screenin g for malignan t neoplasm of colon Completed 202202/26/2023 Problem Code: Z12.11; Problem Code Type: ICD-10; Not Available [facility] 3 04:02:16 Allergic rhinitis 73447076 Completed 201606/19/2018 Problem Code: J30.9; Problem Code Type: ICD-10; Not Available [facility] 3 04:02:16 Diabetes mellitus screenin g Completed 201910/17/2020 Problem Code: Z13.1; Problem Code Type: ICD-10; Not Available [facility] 3 04:02:16 Anxiety disorder 433956511 Completed 201611/24/2016 Problem Code: F41.9; Problem Code Type: ICD-10; Not Available [facility] 3 04:02:17 Hyperlip idemia screenin g Completed 201910/17/2020 Problem Code: Z13.220; Problem Code Type: ICD-10; Not Available [facility] 3 04:02:20 Major depressi on, single episode 41729262 Completed 201611/24/2016 Problem Code: F32.9; Problem Code Type: ICD-10; Not Available [facility] 3 04:02:22 Prediabe jax 719037263 Active 2023 KEELY CHAIDEZ PA-C [address], [place], [address] , [facility]. 4 08:34:56 Skin lesion 15636600 Active 2023 L lower back 1cmx0.2c m oval brown macule KEELY CHAIDEZ PA-C [address], [place], [address] , [facility]. 4 09:01:18 Problem Notes None recorded. Procedures Surgical History None recorded. Imaging Results Imaging Date Name Status [facility]Modified by [facility] Details LastModified Time 05/17/2023 imaging/diag nostic result completed 163 Information not available 04/30/2024 04:27:08 Procedure Notes None recorded. Medical Equipment None Reported. [...] Last Updated DateTime 175.26 cm 38.2 kg/m2 439144. 93 g 97.4 [degF] 18 /min 96 % 96 % 66 /min 122 mm[Hg] 80 mm[Hg] ALEXY ALAMO LPN [facility] 08:20:57 Social History Question Answer Notes LastModified by Organizat ion Details LastModified Time Tobacco Smoking Status Never Smoker ALEXY ALAMO LPN [facility] 03/07/2024 08:22:18 Would You Say That, In [...] zoster recombinant 03/07/[address], [place], [address], [facility], [facility]. 03/07/2024 09:35:16 Tdap 11/24/2016 completed Not Available [facility] 06:32:36 Influenza, split virus, quadrivalent, preservative 05/26/2017 completed Not Available [facility] 06/24/2023 06:32:37 Influenza, split virus, quadrivalent, preservative 06/16/2018 completed [facility] 06/24/2023 06:32:37 COVID-19, mRNA, LNP-S, PF, 100 mcg/0.5mL dose or 50 mcg/0.25mL dose 10/10/2020 completed Not Available [facility] 06/24/20 06:32:37 COVID-19, mRNA, LNP-S, PF, 100 mcg/0.5mL dose or 50 mcg/0.25mL dose 11/06/2020 completed Not Available [facility] 06/24/20 06:32:37 COVID-19, mRNA, LNP-S, PF, 100 mcg/0.5mL dose or 50 mcg/0.25mL dose 07/17/2021 completed Not Available [facility] 06/24/20 06:32:37 COVID-19, mRNA, LNP-S, bivalent, PF, 50 mcg/0.5 mL or 25mcg/0.25 mL dose 06/01/2022 completed Not Available [facility] 06/24/2023 06:32:37 influenza, unspecified formulation 05/29/2018 completed Not Available [facility] 06/24/2023 06:32:37 influenza, unspecified formulation 05/29/2020 completed Not Available [facility] 06/24/2023 06:32:37 Past Encounters Encounter ID Performer Location Encounter Start Date Encounter Closed Date Diagnosis/Indication Diagnosis SNOMED-CT Code Diagnosis ICD10 Code [id number] KEELY CHAIDEZ PA-C [facility] [address] [place] [address] 03/07/2024 08:07:23 03/07/2024 09:09:35 Active or passive immunization 372153602 Z23 Adult [facility] th examination 812487175 Z00.00 Hepatitis C screening 41 5604155 Z11.59 HIV screening 440329460 Z11.4 Prediabetes 583482600 R7 3.03 Gout 92597271 M10.9 Screening for malignant neoplasm of prostate 099047426 Z12.5 Hyperlipidemia 05188940 E78.5 Skin lesion 55493163 L98 .9 Screening for malignant neoplasm of colon 700632050 Z12.11 Anxiety 05612831 F41.9 Obesity 211720884 E66.[id number] [address] 04/30/2024 13:54:56 04/30/2024 14:22:29 Gout 59177129 M10.9 Health Concerns Section Related Observation LastModified by Organization Detai ls LastModified Time None Recorded Concern Status LastModified by Organization Details LastModified Time None Recorded Advance Directives Directive None Recorded Payers Encounter Date Sequence Insurance Name Policy Number Policy Daniels Covered Member ID Daniels Member ID Guarantor Name 03/07/[address] [facility] [id number] [facility] [id number] [facility] 04/30/[address] [facility] [id number] [facility] [id number] [facility] Notes Date Note Type Note Provider Name [...] on current medications. denies SI or HI KEELY CHAIDEZ PA-C [address], [place], [address], [facility]. 03/07/2024 09:36:39
--- OUTSIDE RECORDS SUMMARY | 2024-04-30 19:59 | XMS_ITS | Clinical Summary ---
Author Organization [facility] Address [address] [place] [address] Care Team Providers Care Truck Loader And Unloader Name Role Phone Keely Jimenez Primary Care Provider + Encounters Date Type Department Care Team Description 03/08/2024 Lab Requisition [facility] [address] [id number] Outr Resulting Lab, Provider 03/08/2024 Lab Requisition [facility] Laboratory [address] [address] Outr Resulting Lab, Provider from Last 3 Months Social History Tobacco Use Types Packs/Day Years Used Date Smoking Tobacco: Never Assessed Sex and Gender Information Value Date Recorded Sex Assigned at Not on file Gender Identity Not on file Sexual Orientation Not on file Plan of Treatment Health Maintenance Due Date Last Done Comments Hepatitis B Vaccine (1 of 3 - 19+ 3-dose series) 10/01 COVID-19 Vaccine ( season) 2023 Hepatitis C Screen Completed 03/07/2024 Procedures Procedure Name Priority Date/Time Associated Diagnosis Comments HOLD SST Today 03/07/2024 9:00 EDT HIV 1/2 ANTIGEN AND ANTIBODY, 4TH GENERATION Routine 03/07/2024 9:00 EDT PSA TOTAL, DIAGNOSTIC Today 03/07/2024 9:00 EDT HEPATITIS C AB W REFLEX TO HCV RNA BY PCR Today 03/07/2024 9:00 EDT from Last 3 Months Results * HOLD SST (03/07/2024 9:00 EDT) Hold Hold 03/08/2024 20:31 EDT [facility] Blood VENOUS BLOOD / Unknown 03/07/2024 9:00 EDT 03/08/2024 19:28 EDT Provider Outr Resulting Lab LAB INFO SER VICE AND SUPPORT & PHONE RESULT Performing Organization Address [facility]/ZIP Co de Phone Number [facility] [address] [place] [address] * HEPATITIS C AB W REFLEX TO HCV RNA BY PCR (03/07/2024 9:00 EDT) Hep C Antibody Negative Negative 03/08/2024 21:07 EDT [facility] Blood VENOUS BLOOD / Unknown 03/07/2024 9:00 EDT 03/08/2024 19:28 EDT Provider Outr Resulting Lab CHEMISTRY & BLOOD GAS ORDERABLES Performing Organization Address [facility] Co de Phone Number [facility] [address] [place] [phone] * HIV 1/2 ANTIGEN AND ANTIBODY, 4TH GENERATION (03/07/2024 9:00 EDT) HIV 1 and 2 Antibody/p24 Antigen, 4th Generation Negative Negative 03/08/2024 21:12 EDT [facility] Comment:If acute HIV-1 infec tion is suspected in a high risk patient, submit plasma specimen for HIV-1 RNA quantitation test. Blood VENOUS BLOOD / Unknown 03/07/2024 9:00 EDT 03/08/2024 19:29 EDT Narrative [facility] - 03/08/2024 21:12 EDT Fourth Generation assay performed on the Siemens Centaur XPT. Provider Outr Resulting Lab IMMUNOLOGY A ND SEROLOGY ORDERABLES Performing Organization Address City/[facility]/ZIP Co de Phone Number [facility] [address] [place] [address] * PSA TOTAL, DIAGNOSTIC (03/07/2024 9:00 EDT) PSA 0.8 <=3.5 ng/mL 03/08/2024 20:30 EDT [facility] Blood VENOUS BLOOD / Unknown 03/07/2024 9:00 EDT 03/08/2024 19:28 EDT Narrative [facility] - 03/08/2024 20:30 EDT NOTE: Serum PSA concentration should not be interpreted as absolute evidence for the presence or absence of malignant disease. Assayed on Siemens Flyfitaur XPT using chemiluminescent technology.??Values obtained by using different assay methods cannot be used interchangeably. Provider Outr Resulting Lab CHEMISTRY & BLOOD GAS ORDERABLES [facility] [address] [place] [address] from Last 3 Months Care Teams Truck Loader And Unloader Relationship Specialty Start Date End Date Keely Jimenez PA [address] [place] [address] [place] [address] PCP - General 02/12/23
[2024-04-30 20:00] LABS: Anion Gap 7.3 mmol/L (3-11); BUN 15 mg/dL (7-18); CO2 28.7 mmol/L (21.0-32.0); CREATININE 1.4 mg/dL (0.70-1.30); Calcium 9.7 mg/dL (8.5-10.1); Chloride 103 mmol/L (98-107); Estimated GFR 61.23 (mL/min/1.73m2); Glucose 113 mg/dL (74-106); Potassium 4.1 mmol/L (3.5-5.1); Sodium 139 mmol/L (136-145); Uric Acid 6.3 mg/dL (3.5-7.2)
== END 2024-04-30 19:59 | disposition home or self-care (01) ==
LOC: NCHCN 19:58
PROVIDERS: PCP Physician Assistant; Visit Provider Physician Assistant
DX: M10.9 Gout, unspecified (principal)
CPT/HCPCS: 80048; 84550

== ENCOUNTER 2025-03-12 12:39 | Outpatient (REF) | payer OTHER, SELFPAY ==
[2025-03-12 21:04] LABS: ALT 39 U/L (16-63); AST 29 U/L (15-37); Albumin 4.5 g/dL (3.4-5.0); Alkaline Phosphatase 64 U/L (46-116); Anion Gap 9.4 mmol/L (3-11); BUN 17 mg/dL (7-18); Bilirubin, Total 0.6 mg/dL (0.2-1.0); CO2 27.6 mmol/L (21.0-32.0); Calcium 9.5 mg/dL (8.5-10.1); Chloride 104 mmol/L (98-107); Estimated GFR 60.85 (mL/min/1.73m2); Glucose 121 mg/dL (74-106); Potassium 4.3 mmol/L (3.5-5.1); Sodium 141 mmol/L (136-145); Total Protein 7.8 g/dL (6.4-8.2); Uric Acid 7.4 mg/dL (3.5-7.2)
[2025-03-12 22:00] LABS: Calculated LDL 162 mg/dL (<100); Cholesterol 250 mg/dL (<200); HDL Cholesterol 58 mg/dL (>or=40); Triglyceride 150 mg/dL (<150)
== END 2025-03-12 12:40 | disposition home or self-care (01) ==
LOC: NCHCN 12:39
PROVIDERS: PCP Physician Assistant; Visit Provider Physician Assistant
DX: M10.9 Gout, unspecified (principal); E78.5 Hyperlipidemia, unspecified
CPT/HCPCS: 80053; 80061; 84550; 85025

== ENCOUNTER 2025-04-08 18:22 | Outpatient (REF) | payer OTHER, SELFPAY ==
[2025-04-08 19:12] LABS: Abs Immature Grans 0.04 10^3/uL (0.0-0.06); HCT 46.2 % (40.0-50.0); HGB 16.1 g/dL (13.5-17.5); Immature Grans % 0.4 %; MCH 31.1 pg (27.0-33.0); MCHC 34.8 % (32.0-36.0); MCV 89 fL (80-95); MPV 9.8 fL (8.0-11.0); Platelet Count 295 10^3/uL (130-400); RBC 5.18 10^6/uL (4.36-5.78); RDW 12.7 % (11.8-14.1); RDW-SD 41.8 fL; WBC 9.94 10^3/uL (4.4-10.8)
[2025-04-08 19:25] LABS: Anion Gap 8.2 mmol/L (3-11); BUN 19 mg/dL (7-18); CO2 30.8 mmol/L (21.0-32.0); Calcium 10.1 mg/dL (8.5-10.1); Chloride 101 mmol/L (98-107); Estimated GFR 51.84 (mL/min/1.73m2); Glucose 147 mg/dL (74-106); Potassium 4.1 mmol/L (3.5-5.1); Sodium 140 mmol/L (136-145)
[2025-04-08 19:30] LABS: Uric Acid 6.2 mg/dL (3.5-7.2)
== END 2025-04-08 18:23 | disposition home or self-care (01) ==
LOC: NCHCN 18:22
PROVIDERS: PCP Physician Assistant; Visit Provider Physician Assistant
DX: M10.9 Gout, unspecified (principal)
CPT/HCPCS: 80048; 84550; 85025

== ENCOUNTER 2025-08-02 08:18 | Day surgery (SDC) | payer OTHER, SELFPAY ==
--- NOTE | 2025-08-01 18:47 | W.PM.DSUDISC ---
Date of service: 08/02/25 Discharge Plan Disposition Patient Disposition: Home Condition: Good Discharge Details Reason For Visit: screening colonoscopy Attending Provider: Jace Harvey Primary Care Provider: Keely Jimenez Home Meds and New Rx's Prescriptions: Continued sumatriptan succinate [Imitrex] 50 mg tablet See Rx Instructions PO .COMPLEX Rx Instructions: take 1 tab at onset of headache; if no relief may repeat 1 tab after at least 2 hrs; max = 4 tabs/24 hr PO liothyronine 5 mcg tablet 7.5 mcg PO DAILY allopurinol 100 mg tablet 100 mg PO DAILY bupropion HCl [Wellbutrin XL] 300 mg Tablet Extended Release 24 Hr 450 mg PO DAILY Discontinued bisacodyl [Dulcolax (bisacodyl)] 5 mg tablet,delayed release (DR/EC) 5 mg PO ONCE Qty: 4 0RF Rx Instructions: Take per colonoscopy instructions provided by ordering providers office polyethylene glycol 3350 17 gram/dose powder 17 g PO ONCE Qty: 238 0RF Rx Instructions: Take per colonoscopy instructions provided by ordering providers office Discharge Instructions Additional Instructions: leander Hernandez pleasure meeting you today, and hope you are comfortable through the procedure. Everything went very smoothly. I did not see any signs of tumors, polyps, or anything else to worry about. With negative screening colonoscopy today, and no other significant risk factors, I recommend a 10-year interval for your next colonoscopy. If anything changes, please reach out to your primary care physician. If you have any questions about the procedure, please do not hesitate to call us. 1. If tolerated, consume a soft, low fiber diet for 1-2 days. 2[address] Do not drive, drink alcohol, operate machinery, make critical decisions, or do activities that require coordination or balance for 24 hours. 3. Because air was put into your colon during the procedure, expelling air from your rectum (passing gas or farting) is normal. 4. You may not have a bowel movement for 1-3 days because of the colonoscopy prep. This is normal. 5. Go directly to the emergency room if you notice any of the following: Develop chills (warm to touch), or if you have a thermometer and your temperature is above 101 Difficulty breathing or difficultly swallowing Persistent vomiting Severe abdominal pain, other than gas cramps Severe chest pain Black, tarry stools Any bleeding ? exceeding one tablespoon 6. Call your physician if the site where your intravenous was started becomes red, swollen, painful, and warm to touch. 7. Your physician has reviewed your pre-procedure medications. Please continue to take those medications as previously ordered. You will be given specific information/education regarding any changes to your medications before leaving. Stand Alone Forms: Anesthesia Discharge Inst., Jake Rust (DSU), Portal Information Activity:: Activity as Tolerated Diet:: As Tolerated Discharge Orders Discharge Orders: Discharge Order (Routine); Ordered 08/01/25 Ordered By: Jace Harvey DS: Diagnosis Discharge Diagnosis (1) Encounter for screening colonoscopy: Status: Acute Asessment and Plan: Negative screening colonoscopy; 10-year follow-up
--- NOTE | 2025-08-01 18:50 | COLE_ITS ---
Date of service: 08/02/25 Time of Service: 10:09 Colonoscopy Report Date of procedure: 08/02/25 Pre-op diagnosis general: screening colonoscopy Post-op diagnosis procedure note: other (Negative screening colonoscopy) Procedure: colonoscopy Surgeon: Jace Harvey Anesthesia Type: General:No Airway Estimated blood loss (mL): 0 Pathology: none sent Complications: None Disposition: same day Indications: David is a 49 year old man who needs a screening colonoscopy Prep: Miralax/Dulcolax Procedure Start Time: :47 Procedure End Time: :57 Retraction Time: 6 Findings: Negative screening colonoscopy Procedure Description: After the induction of anesthesia, and with the patient in left lateral decubitus position, I began by performing an external anorectal exam.? Perineum and skin were normal, as was the anal verge.? There was no evidence of external hemorrhoids.? Next, I performed a digital rectal exam.? I did not appreciate any abnormal findings.? Next, I advanced a colonoscope into the rectal vault.? I performed retroflexion.? This appeared normal.? Using insufflation, I then advanced the colonoscope beyond the rectal folds and into the sigmoid colon before advancing towards the cecum.? The quality of the prep was excellent.? The scope was noted to be in the cecum by identification of the ileocecal valve and appendiceal orifice.? I then began withdrawing the colonoscope using repeated irrigation as necessary for full evaluation of the colonic mucosa. ?Once the scope was withdrawn to the level of the rectum, great care was taken to examine portions of the rectal folds.? I saw no signs of tumors, polyps, or any other worrisome pathology. Finally, the scope was withdrawn and the patient was brought to the same-day surgery recovery unit as the anesthetic wore off. ?The findings and instructions were shared with the patient prior to discharge. [place] Bowel Prep [place] Bowel Prep Right Colon: 3 Left Colon: 3 Transverse Colon: 3 Total Score: 9
[2025-08-02 08:26] VITALS: BP 142/99; PULSE 80; RESP 18; TEMP 36.6; O2SAT 96
[2025-08-02] MEDS: Lactated Ringers 1,000 ML 80 ML IV (09:14)
--- NOTE | 2025-08-02 09:27 | W.ANESPRE ---
General Info Date of Service Date Performed: 08/02/25 Height: 5 ft 9 in Weight: 116 kg Body Mass Index (BMI): 37.8 Surgical Procedure: Operation Date: 08/02/25 09:50 Proposed Procedure Side Surgeon joshua Harvey MD Meds Allergies and Home Medications Allergies Allergy/AdvReac Type Severity Reaction Status Date / Time No Known Allergies Allergy Unverified 08/02/25 08:56 Home Medication ?Medication ?Instructions ?Recorded bupropion HCl 300 mg 24 hr tablet, 450 mg PO DAILY 05/17/23 extended release (Wellbutrin XL) liothyronine 5 mcg tablet 7.5 mcg PO DAILY 06/23/23 sumatriptan succinate 50 mg tablet See Rx Instructions PO .COMPLEX 06/23/23 (Imitrex) allopurinol 100 mg tablet 100 mg PO DAILY 06/25/25 Current Visit Medications: Current Medications Generic Name Dose Route Start Last Admin Trade Name Freq PRN Reason Stop Dose Admin Ringer's Solution 1,000 mls @ 80 mls/hr 08/02/25 06:00 08/02/25 09:14 IV 08/02/25 23:59 80 mls/hr INFUSION SYBIL Administration Sodium Chloride 0 ml 08/02/25 06:00 Normal Saline Flush 10 Ml Syr IV 08/02/25 23:59 PRN PRN Sodium Chloride 0 ml 08/02/25 06:00 Normal Saline 10 Ml Vial IJ 08/02/25 23:59 DIRECTED PRN Sterile Water 0 ml 08/02/25 06:00 Water,Injection,Sterile 10 Ml Vial IJ 08/02/25 23:59 DIRECTED PRN PFSH Active Problems Active Problems: Problem Status Onset Code Encounter for screening colonoscopy Acute Z12.11 Anxiety Chronic F41.9 Hyperlipidemia Acute E78.5 Medical History Medical History COVID-19 Elevated blood pressure reading in office without diagnosis of hypertension Prediabetes Tick bite Skin lesion Elevated blood pressure reading Sleep apnea Gout Anxiety and depression Family history of diabetes mellitus (DM) Migraine Neoplasm of uncertain behavior of skin Family history of ulcerative colitis Mother Surgical History Surgical History History of vasectomy Hx of tonsillectomy Tobacco Smoking/Tobacco Use Status: Never Alcohol Alcohol Intake: current Alcohol intake frequency: a few times a week Alcohol type: beer Substance Use Substance use: Never Substance use type: does not use Vital Signs and Lab Results Vital Signs Most Recent Vital Signs in EMR: Most Recent Vital Signs Temp Pulse Resp BP Pulse Ox 36.6 C 80 18 142/99 H 96 08/02/25 08:26 08/02/25 08:26 08/02/25 08:26 08/02/25 08:26 08/02/25 08:26 Anesthesia Assessment and Plan Anesthesia History Personal History: No History of Anesthesia Complications Family History: No Family History of Anesthesia Complications Exercise Tolerance Exercise Tolerance: Metabolic Equivalents>4 Pertinent Negatives Pertinent Negatives: No Symptoms of GERD Cardiac & Pulmonary Exam Cardiac Exam: Normal S1/S2 Heart Sounds Pulmonary Exam: Clear Bilateral Breath Sounds Implantable Cardiac Device Does patient have a Pacemaker or an ICD?: No Airway Exam Known Difficult Airway: No Mallampati Class: 2 Mouth Opening: Normal (> 3cm) Thyromental Distance: Greater than 3 cm Facial Hair: Full Vargas Neck Range of Motion: Full ROM Neck Circumference: Normal Teeth Condition: Normal Dentition ASA Classification ASA Score: ASA 2 Emergency Case?: No NPO Status NPO Status: NPO Clears >2 hours, Solids >8 hours Anesthesia Plan Resuscitation Status: Full Code Anesthesia Technique: General Anesthesia Airway Planned: Natural Airway Monitors Used: Standard Monitors
[2025-08-02 09:29] VITALS: BMI 37.8
[2025-08-02 10:03] VITALS: BP 117/88; PULSE 86; RESP 16; TEMP 36.7; O2SAT 95
[2025-08-02 10:32] VITALS: BP 135/90; PULSE 68; RESP 14; TEMP 36.6; O2SAT 96
--- NOTE | 2025-08-02 11:05 | W.ANESPOSTOP ---
Postoperative Evaluation Date, Time and Location Date Performed: 08/02/25 Time Performed: 10:33 Patient Location: Day Surgery Unit Vital Signs Most Recent Imported Vital Signs: Most Recent Vital Signs Temp Pulse Resp BP Pulse Ox 36.6 C 68 14 135/90 96 08/02/25 10:32 08/02/25 10:32 08/02/25 10:32 08/02/25 10:32 08/02/25 10:32 Pain Score Most Recent Pain Score: Most Recent Pain Score Pain Level 1 08/02/25 10:32 Assessment Mental Status: Awake (Alert & Oriented to Patient Baseline) Airway and Respiratory Function: Patent airway with normal (patient baseline) respiratory exam Cardiovascular Function: Hemodynamically Stable Hydration Status: Adequately Hydrated Nausea & Vomiting: No Nausea or Vomiting Pain: Pt. Denies Any Pain Peripheral Nerve Block: Patient did not receive a nerve block
== END 2025-08-02 10:46 | disposition home or self-care (01) ==
LOC: SUR 08:18
PROVIDERS: PCP Physician Assistant; Visit Provider Surgery
PROC: 0DJD8ZZ Inspection of Lower Intestinal Tract, Via Natural or Artificial Opening Endoscopic (ICD-10-PCS; CPT 45378; principal; 2025-08-02 09:45)
DX: Z12.11 Encounter for screening for malignant neoplasm of colon (principal); Z83.79 Family history of other diseases of the digestive system
CPT/HCPCS: 45378; J2704